=== PATIENT | female | born 1940 | race Two or more races ===

== ENCOUNTER → 2019-01-21 | Day surgery (SDC) | payer MEDICARE, OTHER ==
[2019-01-18 12:01] LABS: BASOPHILS % 0.5 % (0.0-1.0); EOSINOPHILS # (AUTO) 0.2 (0.0-0.4); HEMATOCRIT 38.9 % (34.2-44.1); HEMOGLOBIN 12.6 g/dL (12.0-16.0); LYMPHOCYTES # (AUTO) 1.6 (1.0-3.2); MEAN CORPUSCULAR HEMOGLOBIN 29.1 pg (28-32); MEAN CORPUSCULAR HGB CONC 32.4 g/dL (31-35); MEAN CORPUSCULAR VOLUME 89.8 fL (81-99); MONOCYTES # (AUTO) 0.8 (0.2-0.8); MONOCYTES % 9.3 % (4.4-11.3); NEUTROPHILS # (AUTO) 5.9 (2.1-6.9); PLATELET COUNT 224 x10e3/uL (140-360); RED BLOOD COUNT 4.33 x10e6/uL (3.6-5.1); RED CELL DISTRIBUTION WIDTH 13.2 % (11.7-14.4)
[2019-01-18 12:23] LABS: ANION GAP 15.2 mmol/L (8-16); BLOOD UREA NITROGEN 25 mg/dL (7-26); BUN/CREATININE RATIO 28 (6-25); CALCIUM 9.6 mg/dL (8.4-10.2); CARBON DIOXIDE 24 mmol/L (22-29); CHLORIDE 103 mmol/L (98-107); EST GLOMERULAR FILTRATION RATE > 60 ML/MIN (60-); GLUCOSE 89 mg/dL (74-118); POTASSIUM 4.2 mmol/L (3.5-5.1); SODIUM 138 mmol/L (136-145)
--- NOTE | 2019-01-18 13:50 | Diagnostic Imaging Report ---
EXAM: CHEST 2 VIEWS DATE: 01/18/2019 10:56 AM INDICATION: Preop colonoscopy COMPARISON: None FINDINGS: Lines and tubes: None Heart size normal. No focal pulmonary opacity, pleural effusion or pneumothorax. Upper abdomen unremarkable with surgical clips in the right upper abdomen. No acute bony abnormality. IMPRESSION: No evidence for acute disease. Signed by: Dr. Rod Del Toro M.D. on 01/18/2019 1:46 PM
[~2019-01-21] MED LIST: ASPIR-LOW81 MG PO; ATORVASTATIN CA10 MG PO; CALCIUM + D PO; LIDOCAINE HCL 2% LOCAL INJ 5 ML SDV VIAL INJ ONE; LOSARTAN POTAS100 MG PO; LOSARTAN-HCTZ1 EAC2; MAGNESIUM OXID400 MG PO; MELATONIN10 M1 PO; MULTIVITAMINS1 EAC8 PO; OMEPRAZOLE20 M1; OMEPRAZOLE20 M1 PO; PROPOFOL IV EMULSION 10 MG/ML 20 ML VIAL ONE; VITAMIN C500 M4 PO; VITAMIN E PO; [UNRECOGNIZED DRUG - OTHER] PO
--- OUTSIDE RECORDS SUMMARY | 2019-01-21 06:33 | XMS REPORT | Summary of Care ---
Author Author [facility] Outpatient Imaging [facility]patient [facility] [place] Address Unknown Phone Unavailable Encounter HQ Charlyntr_bhumi(FIN) [id number] Date(s): 04/19/18 - 04/19/18 [facility] [place] [address] [place], [place] [address]- [phone] Discharge Disposition: Home or Self Care Attending Physician: Majo Lin MD Vital Signs No data available for this section Problem List Condition Effective Dates Status Health Status Informant Dense Active breast(Confirmed) Gastroesophageal 07/20/14 Active reflux disease1 Hypertensive 07/20/14 Active disorder2 Mammography 09/06/14 Active abnormal3 Osteoporosis(Confirm Active ed) Need for Active prophylactic vaccination with Streptococcus pneumoniae (Pneumococcus) and Influenza vaccines(Confirmed) Postmenopausal 07/20/14 Active state4 Solitary cyst of 04/11/15 Active breast5 1Data migrated from [employer] on 05/01/15. 2Data migrated from [employer] on 05/01/15. 3Data migrated from [employer] on 05/01/15. 4Data migrated from [employer] on 05/01/15. 5Data migrated from [employer] on 06/06/15. Allergies, Adverse Reactions, Alerts Substance Reaction Severity Status NKDA Active Medications No data available for this section Results No data available for this section Immunizations Given and Recorded Vaccine Date Status Refusal Reason pneumococcal 13-valent vaccine 07/25/15 Given Procedures Procedure Date Related Diagnosis Body Site Status Cholecystectomy Completed Hysterectomy Completed Social History Social History Type Response Smoking Status Never smoker; Exposure to Tobacco Smoke None; Cigarette Smoking Last 365 Days No; Reg Smoking Cessation Counseling No entered on: 04/16/18 Assessment and Plan No data available for this section
--- OUTSIDE RECORDS SUMMARY | 2019-01-21 06:33 | XMS REPORT ---
Author Author [facility] Address Unknown Phone Unavailable Care Team Providers Care Wet Machine Cutter Name Role Phone Payton ROSS Unavailable Unavailable Problems This patient has no known problems. Allergies, Adverse Reactions, Alerts This patient has no known allergies or adverse reactions. Medications This patient has no known medications. Results Test Description Test Time Test Comments Text Results Atomic Results Result Comments CHEST 2 VIEWS 2019-01-18 13:44:00 [place] [address] Patient Name: CHRISTINE GOLDBERG MR #: [id number] : 1940 Age/Sex: 78/F Req #: [id number] [facility] Physician: Ordered by: CARMINE ROSS MD Report #: [id number] Location: OR Room/Bed: Procedure: [id number] DX/CHEST 2 VIEWS Exam Date: 01/18/19 Exam Time: 1146 REPORT STATUS: Signed EXAM: CHEST 2 VIEWS DATE: 01/18/2019 10:56 AM I NDICATION: Preop colonoscopy COMPARISON: None FINDINGS: Lines and tubes: None Heart size normal. No focal pulmonary opacity, pleural effusion or pneumothorax. Upper abdomen unremarkable with surgical clips in the right upper abdomen. No acute bony abnormality. IMPRESSION: No evidence for acute disease. Signed by: Dr. Clare Jane M.D. on 01/18/2019 1:46 PM Dictated By: CLARE JANE MD 1346 Transcribed By: MARIE on 01/18/19 1346 COPY TO: CARMINE ROSS MD SCR MAMM BILATERAL GEE CAD DIGITAL 2019-01-11 08:35:54 - SCR MAMM BILATERAL GEE CAD DIGITALBILATERAL DIGITAL SCREENING MAMMOGRAM 3D/2D WITH CAD: 01/10/2019CLINICAL: Asymptomatic. Digital breast tomosynthesis was performed in addition to routine CC and MLO views. Current mammographic images were evaluated by either a [employer] or an [employer] version 7.2 computer aided detection system. Comparison is made to exams dated 11/10/2017 mammogram, 08/13/2016 mammogram, and 05/09/2015 mammogram - [facility]. The tissue of both breasts is heterogeneously dense. This may lower the sensitivity of mammography. There are benign calcifications in the left breast. No suspicious mass, architectural distortion, malignant type calcification, or lymph node abnormality detected. Breast architecture is stable compared to prior exams.IMPRESSION: BENIGNThere is no mammographic evidence of malignancy. Resume annual screening mammography in one year. Blaine Yoon M.D. ss/penrad:01/11/2019 08:35:54 Filling Layer Up: Delia GONZALEZ, [facility] sent: BIRADS 1-2 Normal Mammogram BI-RADS: 2 Benign
--- OUTSIDE RECORDS SUMMARY | 2019-01-21 06:33 | XMS REPORT | Continuity of Care Document ---
Author Author [facility] Address Unknown Phone Unavailable Problems Problem Status Onset Date Classification Date Reported Comments Source CERVICALGIA Active 08/15/2018 [facility] M54.16 Active 08/12/2018 [facility] R10.2 - PELVIC AND PERINEAL PAIN R10.32 Active 04/16/2018 [facility] [place] LOW BACK PAIN Active 11/05/2016 [facility] Solitary cyst of breast<sup>5</sup> Active 04/11/2015 Problem 04/19/2018 Data migrated from [employer] on 06/06/15. [facility] Solitary cyst of breast<sup>5</sup> Active 04/11/2015 Problem 04/22/2018 Data migrated from [employer] on 06/06/15. [facility] [place] Mammography abnormal<sup>3</sup> Active 09/06/2014 Problem 04/19/2018 Data migrated from [employer] on 05/01/15. [facility] Mammography abnormal<sup>3</sup> Active 09/06/2014 Problem 04/22/2018 Data migrated from [employer] on 05/01/15. [facility] [place] GERD Active 07/20/2014 Condition 07/20/2014 [facility] HYPERTENSION Active 07/20/2014 Condition 07/20/2014 [facility] POSTMENOPAUSAL STATUS Active 07/20/2014 Condition 07/20/2014 [facility] SCREENING FOR BREAST CANCER Active 07/20/2014 Condition 07/20/2014 [facility] LIPOMA OF SKIN NEC Active 07/20/2014 Condition 07/20/2014 [facility] PHYSICAL EXAM Active 07/20/2014 Condition 07/20/2014 [facility] Gastroesophageal reflux disease<sup>1</sup> Active 07/20/2014 Problem 04/19/2018 Data migrated from [employer] on 05/01/15. [facility] Hypertensive disorder<sup>2</sup> Active 07/20/2014 Problem 04/19/2018 Data migrated from [employer] on 05/01/15. [facility] Postmenopausal state<sup>4</sup> Active 07/20/2014 Problem 04/19/2018 Data migrated from [employer] on 05/01/15. [facility] Gastroesophageal reflux disease<sup>1</sup> Active 07/20/2014 Problem 04/22/2018 Data migrated from [employer] on 05/01/15. [facility] [place] Hypertensive disorder<sup>2</sup> Active 07/20/2014 Problem 04/22/2018 Data migrated from [employer] on 05/01/15. [facility] [place] Postmenopausal state<sup>4</sup> Active 07/20/2014 Problem 04/22/2018 Data migrated from [employer] on 05/01/15. [facility] [place] Dense breast Active Problem 04/19/2018 [facility] Osteoporosis Active Problem 04/19/2018 [facility] Need for prophylactic vaccination with Streptococcus pneumoniae and Influenza vaccines(<span ID="[id number]">Confirmed</span>) Active Problem 04/19/2018 [facility] Dense breast Active Problem 04/22/2018 [facility] [place] Osteoporosis Active Problem 04/22/2018 [facility] [place] Need for prophylactic vaccination with Streptococcus pneumoniae and Influenza vaccines(<span ID="[id number]">Confirmed</span>) Active Problem 04/22/2018 [facility] [place] MUSCLE SPASM BACK Active [facility] CERVICALGIA Active [facility] WEAKNESS Active [facility] ABNORMAL POSTURE Active [facility] RADICULOPATHY, LUMBAR REGION Active [facility] Medications Medication Details Route Status Patient Instructions Ordering Provider Order Date Source OMEPRAZOLE 20 MG CPDR one pill daily in the morning by Dr. Aragon Active 07/20/2014 [facility] CALCIUM + D TABS One 600mg pill daily at breakfast, lunch, and dinner Active 07/20/2014 [facility] EQL VITAMIN C 500 MG TABS one pill daily at breakfast Active 07/20/2014 [facility] MULTIVITAMINS CAPS one pill daily at dinner Active 07/20/2014 [facility] ASPIRIN ADULT LOW STRENGTH 81 MG TBEC one pill daily at dinner Active 07/20/2014 [facility] LOSARTAN POTASSIUM 100 MG TABS one pill daily at dinner by Dr. Lerma Active 07/20/2014 [facility] Allergies, Adverse Reactions, Alerts Substance Category Reaction Severity Reaction type Status Date Reported Comments Source Immunizations Immunization Date Given Site Status Last Updated Comments Source pneumococcal 13-valent vaccine 07/25/2015 Right Deltoid completed [facility] pneumococcal 13-valent vaccine 07/25/2015 Right Deltoid completed [facility] CYNDYCarol [facility] [place] Results Order Name Results Value Reference Range Date Interpretation Comments Source Spine lumbar wo contrast MRI Spine lumbar wo contrast MRI Clinical Indication: Lower back pain radiating to the bilateral lower extremities for the past 6 weeks Comparison: None TECHNIQUE: Multiplanar T1, T2, STIR weighted noncontrast MRI of the lumbar spine is performed on the 1.5 Sariah magnet. FINDINGS: ALIGNMENT AND GENERAL ASSESSMENT: There is normal alignment of the lumbar spine. The bone marrow is normal for the patient's age. There is no fracture. The anterior and posterior paraspinal soft tissues are normal. The conus medullaris ends at the L1 level. For the sake of nomenclature, five lumbar vertebrae are assumed. DISC SPACES: T12-L1: The disc is normal. There is no significant central canal or foraminal stenosis. The facet joints are unremarkable. L1-L2: The disc is normal. There is no significant central canal or foraminal stenosis. The facet joints are unremarkable. L2-L3: Disc desiccation with mild height loss and a small posterior circumferential disc bulge. There is no significant central canal or foraminal stenosis. The facet joints are unremarkable. L3-L4: The disc is normal. There is no significant central canal or foraminal stenosis. The facet joints are unremarkable. L4-L5: Small circumferential disc bulge is noted. In addition, there is a small right extraforaminal disc protrusion which abuts the exiting nerve root. There is no significant central canal or foraminal stenosis. Mild bilateral facet arthrosis. L5-S1: Disc desiccation without significant height loss and a small posterior circumferential disc bulge. There is no significant central canal or foraminal stenosis. Mild bilateral facet arthrosis. OTHER: Bilateral benign-appearing cyst in the kidneys, measuring up to 4.7 cm on the left. Prominence of the common bile duct is likely related to remote cholecystectomy. IMPRESSION: Minimal multilevel degenerative changes result most prominently in: 1. L4/L5 small right extraforaminal disc protrusion abuts the exiting right L4 nerve root. 2. No significant central canal effacement. SL: [id number] 08/23/2018 - - Read by: Zuri Chapman MD Dictated Date/time: 08/23/18 14:09 Electronically Signed by: Zuri Chapman MD 08/23/18 14:42 FINAL REPORT [facility] Spine cervical 2 or 3 view DX Spine cervical 2 or 3 view DX Clinical Indication: - cervicalgia; Comparison: None FINDINGS: The [<AP, lateral and odontoid views>] of the cervical spine show normal alignment of the cervical spine. There are no fractures or subluxations. The prevertebral soft tissues and atlanto-dental interspace are normal. The facet joint, spinolaminar line and spinous process alignment is normal. C3-C4 and C5- C6 loss of disc space narrowing posteriorly. There is some facet arthropathy. If there is further concern or neurological abnormalities on clinical exam, recommend further radiographic views, MRI or CT of the cervical spine for complete assessment. IMPRESSION: 1. No acute radiographic abnormality 2. Degenerative changes. SL: [id number] 08/16/2018 - - Read by: Ahmet Barrera MD Dictated Date/time: 08/16/18 16:49 Electronically Signed by: Ahmet Barrera MD 08/16/18 16:50 FINAL REPORT [facility] Abdomen complete w Pelvis US Abdomen complete w Pelvis US Exam: Abdomen complete w Pelvis US Clinical Indication: R10.2 Pelvic and perineal pain, Pain Left Abdomen-upper Pelvis. Comparison: None. TECHNIQUE: Grayscale and limited color sonographic evaluation of the abdomen was performed with standard technique. FINDINGS: LIVER: The visualized liver shows normal contour. There is normal liver size, based on sonography. There is normal liver parenchymal echotexture. The main portal vein is patent with hepatopedal flow. Main portal vein measures cm in diameter. BILE DUCTS: The common bile duct is prominent measuring 8 mm. The distal common bile duct is not well seen. GALLBLADDER: The gallbladder is surgically absent. PANCREAS: The visualized pancreas appears unremarkable. SPLEEN: The spleen is unremarkable and measures 9.5 cm. KIDNEYS: The right kidney measures 9.0 cm. The left kidney measures 10.5 cm. There is normal renal contour and morphology, with normal parenchymal echotexture. There are 2 anechoic cysts identified in the right kidney the largest measuring 2.4 x 2.3 x 2.2 cm. Multiple cysts are identified in the right kidney. One of these demonstrates thin septations measuring 5.3 x 4.5 x 4.8 cm. The others are simple in appearance. No echogenic foci/nephrolithiasis. There is no hydronephrosis. AORTA AND INFERIOR VENA CAVA: The visualized abdominal aorta and inferior vena cava appear unremarkable. ASCITES: There is no significant abdominal ascites. UTERUS: The uterus is surgically absent. OVARIES: The right ovary and left ovary are not visualized. URINARY BLADDER: Bladder is unremarkable without significant wall thickening or internal debris. Right and left ureteral jets are visualized on color Doppler images. Prevoid bladder volume: 230 mL Post void bladder volume: 32 mL FLUID: No significant free fluid in the pelvic cul-de-sac. IMPRESSION: 1. No acute sonographic abnormality in the abdomen or pelvis. 2. Prominent common bile duct most likely relating to cholecystectomy status. If there is clinical concern for biliary obstruction, may consider further assessment with MRCP and/or ERCP. 3. Bilateral renal cysts. A cyst in the left kidney is consistent with Bosniak 2 cyst. 4. Status post hysterectomy. 5. Ovaries are not visualized. SL: [id number] 04/19/2018 - - Read by: Lebron Foley MD Dictated Date/time: 04/19/18 11:31 Electronically Signed by: Lebron Foley MD 04/19/18 11:38 FINAL REPORT [facility] [place] Vital Signs Vital Sign Value Date Comments Source Weight 81.051 04/16/2018 [facility] Height 165.1 cm 04/16/2018 [facility] BMI Calculated 29.73 04/16/2018 [facility] Systolic (mm Hg) 123 04/16/2018 [facility] Diastolic (mm Hg) 75 04/16/2018 [facility] Heart Rate 103 04/16/2018 [facility] Temperature Oral (F) 98.3 F 04/16/2018 [facility] Height 65 07/20/2014 [facility] Weight 182.19 07/20/2014 [facility] Temperature Oral (F) 97.3 F 07/20/2014 [facility] Heart Rate 100 07/20/2014 [facility] Systolic (mm Hg) 139 07/20/2014 [facility] Diastolic (mm Hg) 71 07/20/2014 [facility] Encounters Location Location Details Encounter Type Encounter Number Reason For Visit Attending Provider ADM Date DC Date Status Source [facility] Office Visit [id number] Uche Dos Santos MD 07/20/2014 07/20/2014 [facility] Outpatient [id number] MARCO HANDY- DIAZ 07/30/[address] [facility] [id number] MARCO HANDY- DIAZ 07/30/[address] [facility] Out[facility] [id number] MARCO HANDY- DIAZ 02/20/[address] [facility] Outpatient [id number] MARCO HANDY- DIAZ 02/20/[address] [facility] OP Therapy Patients [id number] Marco Handy-Diaz 03/06/2017 04/05/2017 [facility] OP Therapy Patients [id number] Marco Handy-Diaz 04/06/2017 05/06/2017 [facility] Outpatient [id number] MARCO HANDY- DIAZ 04/16/2018 Active [facility] Outpatient [id number] Marco Handy-Diaz 04/16/2018 04/17/2018 Medical Group [facility] [place] Out[facility] Di[facility] [id number] Marco Handy-Diaz 04/19/2018 04/20/2018 [facility] [place] Outpatient [id number] JOYCE CHAPMAN 08/12/[address] [facility] [id number] MARCO HANDY- DIAZ 09/01/2018 Active [facility] Procedures Procedure Code Date Perfomer Comments Source Cholecystectomy [id number] [facility] Hysterectomy [id number] [facility] Cholecystectomy [id number] [facility] Hysterectomy [id number] [facility] Cholecystectomy [id number] [facility] [place] Hysterectomy [id number] TJ Teague
--- OUTSIDE RECORDS SUMMARY | 2019-01-21 06:33 | XMS REPORT | Summary of Care ---
Author Author [facility] Address Unknown Phone Unavailable Encounter HQ Encntr_aliyuriy(FIN) [id number] Date(s): 04/06/17 - 05/05/17 [facility] Discharge Disposition: Home or Self Care Attending [...] Procedures Procedure Date Related Diagnosis Body Site Cholecystectomy Hysterectomy Social History Social History Type Response Smoking Status Never smoker; Exposure to Tobacco Smoke None; Cigarette Smoking Last 365 Days No; Reg Smoking Cessation Counseling No Assessment and Plan No data available for this section
--- OUTSIDE RECORDS SUMMARY | 2019-01-21 06:33 | XMS REPORT | Summary of Care ---
Author Author [facility] Organization [facility] Address Unknown Phone Unavailable Encounter HQ Radha_bhumi(FIN) [id number] Date(s): 04/16/18 - 04/16/18 [place] [address] [facility] [address] [place] [address]- [phone] Discharge Disposition: Home or Self Care Attending Physician: Majo Lin MD Vital Signs Most recent to 1 oldest [Reference Range]: Height 165.1 cm (04/16/18 8:55 AM) Temperature Oral 98.3 DegF [96.4-99.1 DegF] (04/16/18 8:55 AM) Blood Pressure 123/75 mmHg [90-140/60-90 mmHg] (04/16/18 8:55 AM) Peripheral Pulse 103 bpm Rate [60-100 bpm] *HI* (04/16/18 8:55 AM) Weight 81.051 kg (04/16/18 8:55 AM) Body Mass Index 29.73 m2 (04/16/18 8:55 AM) Problem List Condition Effective Dates Status Health [...] Reaction Severity Status NKDA Active Medications No Known Medications Results No data available for this section [...]
--- OUTSIDE RECORDS SUMMARY | 2019-01-21 06:33 | XMS REPORT | Continuity of Care Document ---
Author Author [facility] Organization [facility] Address Unknown Phone Unavailable Care Team Providers Care Information Systems Security Specialist Name Role Phone MD Levon, Uche PP Unavailable Insurance Providers Payer name Policy type / Coverage type Policy ID Covered democrat ID Policy Aleman AETNA (MEDICARE REPLACEMENT PPO) AETNA (MEDICARE REPLACEMENT PPO) [place] B-[place]: [employer] AET[employer] (MEDICARE REPLACEMENT PPO) AETNA (MEDICARE REPLACEMENT PPO) AETNA (MEDICARE REPLACEMENT PPO) AETNA (MEDICARE REPLACEMENT PPO) [employer] HE[employer] OPTIONS (MEDICARE SUPPLEMENT AETNA (MEDICARE REPLACEMENT PPO) [employer] HE[employer] OPTIONS (MEDICARE SUPPLEMENT AETNA (MEDICARE REPLACEMENT PPO) AETNA (MEDICARE REPLACEMENT PPO) AETNA (MEDICARE REPLACEMENT PPO) AETNA (MEDICARE REPLACEMENT PPO) [employer] (MEDICARE SUPP [employer] HE[employer] OPTIONS (MEDICARE SUPPLEMENT AETNA (MEDICARE REPLACEMENT PPO) [employer] (MEDICARE SUPP [employer] OPTIONS (MEDICARE SUPPLEMENT AETNA (MEDICARE REPLACEMENT PPO) [employer] OPTIONS (MEDICARE SUPPLEMENT AETNA (MEDICARE REPLACEMENT PPO) [employer] OPTIONS (MEDICARE SUPPLEMENT AETNA (MEDICARE REPLACEMENT PPO) [employer] OPT[employer] (MEDICARE SUPPLEMENT AETNA (MEDICARE REPLACEMENT PPO) [employer] OPT[employer] (MEDICARE SUPPLEMENT AETNA (MEDICARE REPLACEMENT PPO) [employer] OPT[employer] (MEDICARE SUPPLEMENT AETNA (MEDICARE REPLACEMENT PPO) Encounters Encounter Performer Location Date Office Visit Uche Dos Santos MD [facility] Jul 20, 2014 Problems Problem Effective Dates Problem Status GERD Jul 20, 2014 Active HYPERTENSION Jul 20, 2014 Active POSTMENOPAUSAL STATUS Jul 20, 2014 Active SCREENING FOR BREAST CANCER Jul 20, 2014 Active LIPOMA OF SKIN NEC Jul 20, 2014 Active PHYSICAL EXAM Jul 20, 2014 Active Procedures Date Description Comments Jul 20, 2014 smoking status Never smoker Medications Medication Instructions Start Date Status OMEPRAZOLE 20 MG CPDR one pill daily in the morning by Dr. Aragon Jul 20, 2014 Active CALCIUM + D TABS One 600mg pill daily at breakfast, lunch, and dinner Jul 20, 2014 Active EQL VITAMIN C 500 MG TABS one pill daily at breakfast Jul 20, 2014 Active MULTIVITAMINS CAPS one pill daily at dinner Jul 20, 2014 Active ASPIRIN ADULT LOW STRENGTH 81 MG TBEC one pill daily at dinner Jul 20, 2014 Active LOSARTAN POTASSIUM 100 MG TABS one pill daily at dinner by Dr. Lerma Jul 20, 2014 Active Vital Signs Date Description Test Result Jul 20, 2014 height E&M HEIGHT 65 in Jul 20, 2014 weight E&M WEIGHT 182.19 lb Jul 20, 2014 temperature E&M TEMPERATURE 97.3 deg f Jul 20, 2014 pulse rate E&M PULSE RATE 100 /min Jul 20, 2014 blood pressure, systolic BP SYSTOLIC 139 mm Hg Jul 20, 2014 blood pressure, diastolic BP DIASTOLIC 71 mm Hg
--- OUTSIDE RECORDS SUMMARY | 2019-01-21 06:33 | XMS REPORT | Summary of Care ---
Author Author [facility] Address Unknown Phone Unavailable Encounter HQ Charlyntr_bhumi(FIN) [id number] Date(s): 03/06/17 - 04/04/17 [facility] Discharge Disposition: Home or Self Care Attending [...]
[2019-01-21 09:25] VITALS: BP 133/71
== END | disposition home or self-care (01) ==
LOC: OR 06:31
PROVIDERS: ATTEND Surgery
DX: Z12.11 Encounter for screening for malignant neoplasm of colon (principal); Z86.010 Personal history of colon polyps; Z01.810 Encounter for preprocedural cardiovascular examination; Z01.812 Encounter for preprocedural laboratory examination; Z01.811 Encounter for preprocedural respiratory examination; I10 Essential (primary) hypertension; E78.5 Hyperlipidemia, unspecified; K21.9 Gastro-esophageal reflux disease without esophagitis; K44.9 Diaphragmatic hernia without obstruction or gangrene
CPT/HCPCS: 36415; 45378; 71046; 80048; 85025; 93005; J2001; J2704